=== PATIENT | male | born 1985 | race Caucasian/White ===

== ENCOUNTER 2019-07-13 11:27 | Emergency (ER) | payer MEDICAID, SELFPAY ==
[2019-07-13 11:38] VITALS: BP 131/85; PULSE 76; RESP 16; TEMP 36.6; O2SAT 100
--- NOTE | 2019-07-13 12:15 | ED.DENTAL ---
HPI - Dental/Oral General Chief complaint: Dental/Oral Stated complaint: Infected tooth Time Seen by Provider: 07/13/19 11:38 Source: patient Mode of arrival: ambulatory Limitations: no limitations History of Present Illness HPI Narrative: This patient is a 33 year old male who presents for evaluation for right facial pain and redness. PAtient states 4 days ago he develop right inner ear pain . He was evaluated at an urgent care 3 days ago and he was started on augmentin and prednisone for a right ear infection and dental abscess. Today he developed right facial swelling with a erythematous rash. She denies fever, chills, nausea or vomiting. He denies blurred vision or eye pain. Related Data Home Medications Medication Instructions Recorded Confirmed amoxicillin-pot clavulanate 07/13/19 prednisolone 07/13/19 Allergies Allergy/AdvReac Type Severity Reaction Status Date / Time No Known Allergies Allergy Verified 07/13/19 11:50 Review of Systems Review of Systems: All systems reviewed & are unremarkable except as noted in HPI and below Constitutional: Constitutional: Denies chills, Denies fever(s) and Denies weakness Eyes: Eyes: Denies change in vision and Denies photophobia ENT: Reports dental pain, Reports otalgia and Reports facial pain Gastrointestinal: Gastrointestinal: Denies nausea and Denies vomiting Integumentary/Breasts: Skin/Breast: Reports rash PMFSH Past Medical History Medical History (Updated 07/13/19 @ 19:51 by Peri Castellanos MD) Patient denies medical problems Surgical History Surgical History (Updated 07/13/19 @ 12:17 by Peri Castellanos MD) History of surgical procedure on mouth Exam Const: General: no acute distress and alert Orientation/consciousness: patient oriented x3 HENMT: Ears: external ears normal and TM abnormal dull on the right and erythematous on the right Face and sinus: other (cluster vescicular rash along right temporal along jaw line ,) Mouth: Yes moist mucous membranes, Yes lip abnormal (right lower lip with moreno crust rash to lip) and Yes other (no teeth on right lower 32-27 no present, no gum swelling, ) Throat: posterior oropharynx normal and tonsils normal Eyes: Conjunctivae: conjunctivae normal Pupils: Equal, round and reactive pupils present EOM: EOMs intact bilaterally Resp: Effort & Inspection: normal respiratory effort Neuro: General: patient oriented x3 and moves all extremities Psych: Mental Status: mental status grossly normal Course Reevaluation(s) Reevaluation #1: Patient presented with facial rash that appears to be zoster . He will continue augmentin for otitis media. No dental abnormality found to suggest dental abscess Date: 07/13/19 Time: 11:00 Vital Signs Vital signs: Vital Signs Temperature 97.8 F 07/13/19 11:38 Pulse Rate 76 07/13/19 11:38 Respiratory Rate 16 07/13/19 11:38 Blood Pressure 131/85 07/13/19 11:38 Pulse Oximetry 100 07/13/19 11:38 Temperature 97.8 F 07/13/19 11:38 Pulse Rate 76 07/13/19 11:38 Respiratory Rate 16 07/13/19 11:38 Blood Pressure 131/85 07/13/19 11:38 Pulse Oximetry 100 07/13/19 11:38 Discharge Plan Discharge Clinical Impression: Herpes zoster virus infection of face and ear nerves, Otitis media Patient Disposition: Home, Self-Care Condition: Stable Instructions: Antibiotic Form, Shingles (ED) Additional Instructions: Start taking the valtrex with the antibiotic. Stop taking the steroid. Follow up with your primary care physician. Prescriptions: New valacyclovir [Valtrex] 1 gram tablet 1,000 mg PO Q8H Qty: 21 RF: 0 No Action amoxicillin-pot clavulanate RF: 0 prednisolone RF: 0 Interventions: Discharge Disposition Last Done: 07/13/19 13:05 IV Removed Last Done: 07/13/19 13:05 IV Stop Time Documented Last Done: 07/13/19 13:05 Follow-up/Referrals: Van Kunz MD
== END 2019-07-13 13:06 | disposition home or self-care (01) ==
PROVIDERS: Emergency Provider General Practice
DX: B02.29 Other postherpetic nervous system involvement (principal); H66.91 Otitis media, unspecified, right ear
CPT/HCPCS: 99283